=== PATIENT | female | born 1985 | race Caucasian/White ===

== ENCOUNTER 2016-08-27 13:27 | Observation (INO) | payer MEDICAID ==
[~2016-08-27] VITALS: Ht 157.5 cm; Wt 124.6 kg
[2016-08-27] VITALS (11 sets, daily range): BP systolic 145–173; BP diastolic 59–106; PULSE 68–90; TEMP 97.7–98.9
[2016-08-28] VITALS (11 sets, daily range): BP systolic 112–158; BP diastolic 58–89; PULSE 71–94; TEMP 97.4–98.8
[2016-08-28 07:55] LABS: ADJUSTED CALCIUM 9.4 mg/dL (8.4-10.2); ALBUMIN 3.9 gm/dL (3.5-5.0); BILIRUBIN,TOTAL 1.8 mg/dL (0.0-1.0); CALCIUM 9.3 mg/dL (8.4-10.2); CREATININE, serum 0.72 mg/dL (0.52-1.25); POTASSIUM 3.9 mmol/L (3.4-5.0)
[2016-08-29 06:05] VITALS: BP 142/82; PULSE 91; TEMP 98.7
[2016-08-29 07:20] LABS: ADJUSTED CALCIUM 9.2 mg/dL (8.4-10.2); ALBUMIN 3.6 gm/dL (3.5-5.0); BILIRUBIN,TOTAL 1.9 mg/dL (0.0-1.0); CALCIUM 8.9 mg/dL (8.4-10.2); CREATININE, serum 0.74 mg/dL (0.52-1.25); POTASSIUM 3.3 mmol/L (3.4-5.0); TOTAL PROTEIN 6.6 gm/dL (6.4-8.2)
[2016-08-29 09:03] VITALS: BP 143/82; PULSE 97; TEMP 98.8
[2016-08-29 13:28] VITALS: BP 148/84; PULSE 101; TEMP 99.9
[2016-08-29 17:17] VITALS: BP 155/93; PULSE 101; TEMP 99.3
[2016-08-29 22:56] VITALS: BP 129/73; PULSE 102; TEMP 99.2
[2016-08-30 05:45] VITALS: BP 141/90; PULSE 106; TEMP 98.8
[2016-08-30 10:10] VITALS: BP 127/90; PULSE 103; TEMP 97.7
[2016-08-30 13:34] VITALS: BP 137/77; PULSE 93; TEMP 98.2
[2016-08-30] MEDS ORDERED: NORCO 325 MG-51 TAB PO (16:16)
== END 2016-08-30 17:00 | disposition home or self-care (01) ==
LOC: SURG 13:27
PROVIDERS: Surgery
DX: K80.10 Calculus of gallbladder with chronic cholecystitis without obstruction (principal); I10 Essential (primary) hypertension; E66.9 Obesity, unspecified
CPT/HCPCS: C1769; G0378; G0379; J0330; J0360; J0690; J1956; J2250; J2270; J2405; J2550; J2704; J3010; J3480; J7030; Q9967